=== PATIENT | female | born 1935 | race Caucasian/White ===

== ENCOUNTER 2018-07-21 12:43 | Emergency (ER) | payer OTHER ==
[~2018-07-21] VITALS: Ht 154.9 cm; Wt 78.0 kg
[2018-07-21 13:34] LABS: ABSOLUTE NEUTROPHILS 15.6 thou/uL (1.4-8.2); BASOPHILS 0.3 % (0.0-2.0); EOSINOPHILS 0.1 % (0.0-3.0); HEMOGLOBIN 13.5 gm/dL (12.0-15.0); LYMPHOCYTES 2.7 % (24.0-44.0); MCH 30.2 pg (26.0-34.0); MCHC 32.8 g/dL (28.0-37.0); MCV 92.1 fL (80.0-100.0); MONOCYTES 3.6 % (1.0-8.0); PLATELET COUNT 334 thou/uL (150-400); POLYS 93.3 % (36.0-66.0); RBC 4.45 mil/uL (4.20-5.00); RDW 13.9 % (10.5-14.5); WBC 16.7 thou/uL (4.0-11.0)
[2018-07-21 13:45] LABS: CALCIUM 9.8 mg/dL (8.5-10.1); CREATININE 1.2 mg/dL (0.6-1.0); POTASSIUM 3.7 mmol/L (3.5-5.1)
[2018-07-21 13:50] LABS: ALBUMIN 3.8 g/dL (3.4-5.0); TOTAL BILIRUBIN 0.5 mg/dL (<0.1-1.0); TOTAL PROTEIN 7.7 g/dL (6.4-8.2)
[2018-07-21] MEDS ORDERED: NORCO 5-325 TA1 EACH PO (17:53)
[2018-07-21 20:00] VITALS: BP 123/54
== END 2018-07-21 20:00 | disposition home or self-care (01) ==
LOC: ER 12:43
PROVIDERS: Emergency Medicine
DX: S32.010A Wedge compression fracture of first lumbar vertebra, initial encounter for closed fracture (principal); S32.030A Wedge compression fracture of third lumbar vertebra, initial encounter for closed fracture; M19.90 Unspecified osteoarthritis, unspecified site; E03.9 Hypothyroidism, unspecified; K86.1 Other chronic pancreatitis; Z88.8 Allergy status to other drugs, medicaments and biological substances; Z88.6 Allergy status to analgesic agent; Z88.0 Allergy status to penicillin; X58.XXXA Exposure to other specified factors, initial encounter; Y92.89 Other specified places as the place of occurrence of the external cause; Y93.89 Activity, other specified; Y99.8 Other external cause status

== ENCOUNTER 2018-08-12 09:11 | Inpatient (IN) | payer OTHER ==
[~2018-08-12] VITALS: Ht 154.9 cm; Wt 78.2 kg
[~2018-08-12 09:11] MED LIST: NORCO 5-325 TA1 EACH PO
[2018-08-12 09:14] VITALS: BP 157/75
[2018-08-12] MEDS ORDERED: CLONAZEPAM 1 MG1 M1 PO (12:21)
[2018-08-12] MEDS ORDERED: COZAAR 25 MG TA25 M2 PO (12:21)
[2018-08-12] MEDS ORDERED: SYNTHROID50 MCG PO (12:22)
[2018-08-12] MEDS ORDERED: MS CONTIN15 MG PO (12:22)
[2018-08-12] MEDS ORDERED: SENNA8.6 MG PO (12:22)
[2018-08-12] MEDS ORDERED: ZOLOFT25 MG PO (12:23)
[2018-08-12] MEDS ORDERED: SERTRALINE HCL50 MG PO (12:23)
[2018-08-12 14:02] VITALS: BP 167/76
--- NOTE | 2018-08-12 15:11 | NUR ---
ATTEMPT TO CALL DAUGHTER AT [phone], WAS UPDATED ON PT ROOM NUMBER FOR ADMISSION TO [phone]. DAUGHTER REPORTS THAT SHE IS NOT AWARE OF REACTION TO ANY OF THE MEDS LISTED IN [facility]. PT DAUGHTER ALSO REPORTS THAT PT IS LEAVING AMA FROM REHAB FACILITIES. DAUGHTER REPORTS THAT PT HAS BEEN TO ER X8 TIMES IN 2 MONTHS R/T BACK PAIN
--- NOTE | 2018-08-12 18:21 | NUR ---
PATIENT ARRIVED FROM ED 1430 FOR BACK AND LEFT HIP PAIN. A/OX3, FROM HOME ALONE IN APARTMENT. ADMISSION ASSESMENT AND HISTORY COMPLETED. HOME MED RECONSILED IN ED. FALL PRECAUTIONS IN PLACE. CALL LIGHT IN REACH. PAIN MANAGED WITH MEDICATIONS.
[2018-08-12 21:40] VITALS: BP 119/68
[2018-08-13 05:12] VITALS: BP 131/75
--- NOTE | 2018-08-13 07:44 | NUR ---
PT ARRIVED ON UNIT FROM ER. COMES FROM OWN APARTMENT WITH BACK AND LEFT HIP PAIN. ARAUJO IN PLACE. LORTAB PROVIDING PAIN RELIEF. RESTING COMFORTABLY. NO NEEDS VOICED. CALL LIGHT WITHIN REACH. WILL CONTINUE TO PROVIDE FREQUENT OBSERVATION.
[2018-08-13 08:00] VITALS: BP 135/67
--- NOTE | 2018-08-13 13:09 | NUR ---
ASSUMED CARE 0700. ALERT X3 WITH FORGETFULNESS, DENIES PAIN. UP WITH ASSIST WITH GAIT BELT AND WALKER TO COMMODE. ARAUJO IN PLACE NO BM AT THIS TIME, PASSING ESTER. PT DECLINED INSULIN FOR NOON MEAL VOICING SHE IS NOT A DIABETIC. UP TO RECLINER AT THIS TIME. WAITING FOR PT/OT TO EVAL AND TREAT. FALL PRECAUTIONS IN PLACE. CALLS FOR ASSISTANCE.
[2018-08-13 15:00] VITALS: BP 118/67
[2018-08-13 19:41] VITALS: BP 127/73
--- NOTE | 2018-08-14 00:26 | NUR ---
RECEIVED REPORT FROM OFFGOING DAY NURSE. ASSUMED CARE @ 19:15. IN BED, A&OX3 WITH FORGETFULNESS AND MCGRATH. ARAUJO DRAINING URINE DEPENDENT TO GRAVITY. HRRR, LUNGS CTA ALL [place], ABD NORMOACTIVE, RASH ON HIPS NOTED. IV SALINE LOCK IN R WRIST PATENT, NO R/H/I NOTED. LAST PAIN MEDS AT 17:11, HYDROCODONE/ TYLENOL, ASSESSED FOR PAIN @ 21:10, AND PROVIDED HYDROCODONE X2 TABS @ 21:20 FOR 09/13 P.S. UPON FOLLOW UP ASSESSMENT, WAS NOTED TO BE SLEEPING. BED IN LOW POSITION, CALL LIGHT IN REACH, WILL CONTINUE TO ROUND FOR PT NEEDS AND SAFETY.
[2018-08-14 03:30] VITALS: BP 130/68
[2018-08-14 07:36] VITALS: BP 125/70
[2018-08-14 15:39] VITALS: BP 130/57
--- NOTE | 2018-08-14 16:30 | NUR ---
CM MET WITH PT AT BEDSIDE TGIS DAY. CM PROVIDED SNF LIST FOR REVIEW. PT ASKED THAT REFERRAL BE SENT TO [facility] FOR REVIEW FOR POSSIBLE ADMISSION. REFERRAL TO BE SENT.
--- NOTE | 2018-08-14 16:46 | NUR ---
ASSUMED CARE 0700. ALERT X3 WITH FORGETFULNES. PAIN MANAGED WITH MEDICATIONS. PARTICIPATED WITH PT AND OT. GAYLE VANN'S BM TODAY. UP WITH ASSIST X1 WITH GAIT BELT AND WALKER. FALL PRECAUTIONS IN PLACE WITH CALL LIGHT IN REACH. POSSIBLE DC TO SNIF/LTC
[2018-08-14 19:57] VITALS: BP 106/66
[2018-08-15 03:42] VITALS: BP 110/67
[2018-08-15 07:19] VITALS: BP 118/74
--- NOTE | 2018-08-15 07:32 | NUR ---
Assumed care at 1845. Pt resting in bed. AOX3 forgetful at times. Applied hydrocortisone to both battocks. Pt has a small skin tear on the sacral area from scratching. No identified needs at the moment. Will continue to monitor.
--- NOTE | 2018-08-15 10:56 | NUR ---
Patient ready to dc, need authorization, sent referral to [facility] and requested they put in for auth. AMANDA spoke with Denise she said her DON is looking at referral and will keep us updated.
[2018-08-15 15:23] VITALS: BP 114/63
[2018-08-15 15:26] VITALS: BP 108/63
--- NOTE | 2018-08-15 15:52 | NUR ---
AWAITING AUTH FOR PT TO DC TO [facility].
--- NOTE | 2018-08-15 18:42 | NUR ---
ASSUMED CARE 0700. ALERT X3 FORGETFUL, PAIN MANAGED WITH MEDICAIONS. PROGRESSING TOWARDS GOALS. FALL PRECAUTIONS IN PLACE. CALL LIGHT IN REACH.
[2018-08-15 20:04] VITALS: BP 117/60
[2018-08-16 03:23] VITALS: BP 170/73
--- NOTE | 2018-08-16 03:34 | NUR ---
Assumed care at 1845. Pt resting in bed. AOX3, forgetful at times. Gave hydrocodone twice for back pain. Pt was able to ambulate onetime around the hallway with walker and gait belt. Applied hydrocortisone twice to both buttocks for diaper dickens. Call light within reach. Bed in lowest position. Will continue to monitor.
[2018-08-16 07:14] VITALS: BP 123/68
--- NOTE | 2018-08-16 10:11 | NUR ---
FACESHEET FAXED TO [facility] FOR APPLICATION PROCESS PRIOR TO DISCHARGE.
[2018-08-16 14:23] VITALS: BP 113/63
--- NOTE | 2018-08-16 15:01 | NUR ---
[facility] INDICATED THEY ARE ABLE TO ACCEPT PT BUT THAT PT WOULD OWE $20.00 PER DAY FROM DAYS 1-20 AND $22.00 PER DAY FROM DAYS 21-100. SO SHE WOULD OWE $400.00 UPFRONT. THEY ALSO INDICATED THAT THEY WANT A MEDICAID APPLICATION STARTED AND A COPY OF PT'S DPOA. WE HAD A DPOA ON FILE FORM 1998 BUT PT INDICATED SHE HAD DONE ONE OVER AT [facility] PRIOR TO HER MOST RECENT PROCEDURE. CM CONTACTED [facility] AT [facility] AND FAXED REQUEST FOR DPOA TO THEM. PT INDICATED SHE WAS WILLING AND ABLE TO PAY THE $400.00. CM CALLED AND NOTIFIED AARON IN ADMISSIONS AT [facility] BUT I HAVEN'T HEARD BACK. CM TO FOLLOW WITH ANTIPATED DC TO [facility] THIS DAY. CM TO FOLLOW INDICATED WITH DC PLANNING.
--- NOTE | 2018-08-16 19:59 | NUR ---
PT A&OX3 SOME CONFUSION AT TIMES. VSS, PAIN IN LOWER BACK AND LEFT HIP, RECEIVING NORCO. PT UP 1 ASSIST TO BATHROOM. AWAITING PLACEMENT TO REHAB FACILITY. NO SIGNS OF DISTRESS AT THIS TIME. PT AND OT THERAPIES ON BOARD. WILL CONTINUE TO MONITOR.
[2018-08-16 20:04] VITALS: BP 119/48
[2018-08-17 03:21] VITALS: BP 161/46
--- NOTE | 2018-08-17 07:48 | NUR ---
progress pt reporting pain at an 8 to 10 grimacing anf having difficulty getting oob without help taking hydrocodone with some effect, bed and chair alarms in place as pt seems confused at times.
[2018-08-17 08:02] VITALS: BP 135/87
[2018-08-17 14:30] VITALS: BP 107/69
--- NOTE | 2018-08-17 14:54 | NUR ---
PT A&OX4, VSS, PAIN IN LEFT HIP AND LOWER BACK. NO SIGNS OF DISTRESS OBSERVED. PT IS AWAITING PLACEMENT TO REHAB FACILTY. PAIN MEDICATION STRENGTH INCREASED AND PAIN IS MANAGED BETTER; PATIENT MOVING AROUND MORE. WILL CONTINUE TO MONITOR.
--- NOTE | 2018-08-17 16:02 | NUR ---
CM FOLLOWED UP WITH PT THIS AFTERNOON AND EXPLAINED WHY THEY WANTED MEDICAID PAVEL COMPLETED. PT WAS AGREEABLE AND COMPLETED AP WITH [facility]. CM SPOKE WITH PT'S DTR AND SHE IS AWARE AND AGREEABLE. TRANSPORT HAS BEEN ARRANGED FOR 10:00 TOMORROW MORNING. 08/18/18. ORDERS ARE TO BE FAXED. REPORT TO BE CALLED TO NUMBER GIVEN TO NURSE. CHART COPY ORDERED. CM TO FOLLOW INDICATED WITH DC PLANNING.
[2018-08-17 19:54] VITALS: BP 120/63
[2018-08-18 05:49] LABS: ABSOLUTE NEUTROPHILS 5.3 thou/uL (1.4-8.2); BASOPHILS 0.6 % (0.0-2.0); EOSINOPHILS 1.6 % (0.0-3.0); HEMATOCRIT 42.8 % (37.0-47.0); HEMOGLOBIN 14.3 gm/dL (12.0-15.0); LYMPHOCYTES 9.4 % (24.0-44.0); MCH 31.1 pg (26.0-34.0); MCHC 33.3 g/dL (28.0-37.0); MCV 93.4 fL (80.0-100.0); MONOCYTES 7.5 % (1.0-8.0); PLATELET COUNT 297 thou/uL (150-400); POLYS 80.9 % (36.0-66.0); RBC 4.59 mil/uL (4.20-5.00); RDW 15.3 % (10.5-14.5); WBC 6.5 thou/uL (4.0-11.0)
[2018-08-18 06:00] LABS: CALCIUM 9.9 mg/dL (8.5-10.1); CREATININE 1.2 mg/dL (0.6-1.0); MAGNESIUM 2.2 mg/dL (1.8-2.4); POTASSIUM 3.9 mmol/L (3.5-5.1)
[2018-08-18] MEDS ORDERED: HYDROCORTISONE30 G9 TOP (07:49)
[2018-08-18] MEDS ORDERED: LIDOPATCH1 EACH TRANSDERM (07:49)
[2018-08-18] MEDS ORDERED: GABAPENTIN 100100 MG PO (07:49)
[2018-08-18] MEDS ORDERED: MIRALAX17 GM PO (07:49)
[2018-08-18] MEDS ORDERED: TYLENOL325 MG PO (07:49)
[2018-08-18] MEDS ORDERED: ORPHENADRINE C100 M2 PO (07:49)
[2018-08-18 08:03] VITALS: BP 138/70
[2018-08-18] MEDS ORDERED: PERCOCET PO (08:05)
--- NOTE | 2018-08-18 08:41 | NUR ---
PROGRESS PT RATING PAIN AN 8 TO 9 TAKING OXYCODONE WITH SOME EFFECT. PT IS CONFUSED AND HALLUCINATING BUT ANSWERS QUESTIONS APPROPRIATELY AND USES CALL LIGHT BEFORE GETTING UP VOIDING QS AND HAD A SMALL BM UP WITH 1 GB AND WALKER PT ABLE TO MANAGE OWN CLOTHING FOR TOLIET CARE. CONTINUE TO MONITOR.
--- NOTE | 2018-08-18 11:40 | NUR ---
ASSUMED PATIENT CARE AT 0730 A.M. ASSISTED TO BEDSIDE CHAIR FOR BREAKFAST. COMPLIANT WITH MEDICATIONS. CONFUSED, AUDITORY AND VISIUAL HALLICINATIONS.
--- NOTE | 2018-08-18 11:47 | NUR ---
DISCHARGE NOTE: DISCHARGED AT 10:30 A.M. TO [facility] PER TRANSPORTATION. NURSE CALLED REPORT TO LEDGER NURSE ACCEPTING PATIENT.
== END 2018-08-18 11:00 | DRG 552 ==
LOC: ER 09:11 → EROBS 12:33 → 4W 12:33
PROVIDERS: Nurse Practitioner; ADMIT Hospitalist
DX: M54.5 Low back pain (principal); N17.9 Acute kidney failure, unspecified; M19.90 Unspecified osteoarthritis, unspecified site; G89.29 Other chronic pain; F32.9 Major depressive disorder, single episode, unspecified; E03.9 Hypothyroidism, unspecified; I10 Essential (primary) hypertension; F41.9 Anxiety disorder, unspecified; Z79.899 Other long term (current) drug therapy; Z90.49 Acquired absence of other specified parts of digestive tract; Z87.81 Personal history of (healed) traumatic fracture; Z88.6 Allergy status to analgesic agent; Z88.0 Allergy status to penicillin; Z88.8 Allergy status to other drugs, medicaments and biological substances
CPT/HCPCS: 10040